=== PATIENT | female | born 1945 | race Caucasian/White ===

== ENCOUNTER 2021-04-27 06:51 | Emergency (ER) | payer MEDICARE, OTHER ==
[2021-04-27 07:31] LABS: HEMOGLOBIN 13.4 gm/dl (12.3-15.3); RED BLOOD COUNT 4.42 M/UL (4.00-5.10); WHITE BLOOD COUNT 7.7 K/UL (4.5-11.0)
[2021-04-27 07:53] LABS: BUN/CREATININE RATIO 8 (0-10)
== END 2021-04-27 09:31 | disposition home or self-care (01) ==
LOC: ER1 06:51
PROVIDERS: Student in an Organized Health Care Education/Training Program
DX: R10.32 Left lower quadrant pain (principal); J44.9 Chronic obstructive pulmonary disease, unspecified; F17.200 Nicotine dependence, unspecified, uncomplicated; Z88.2 Allergy status to sulfonamides; Z91.041 Radiographic dye allergy status
CPT/HCPCS: 71045; 80053; 82550; 82553; 83690; 83874; 84484; 85025; 93005; 99284